=== PATIENT | male | born 1980 | race Caucasian/White ===

== ENCOUNTER 2019-01-26 06:00 | Emergency (ER) | payer OTHER, SELFPAY ==
[2019-01-26 06:06] VITALS: BP 133/70; PULSE 98; RESP 18; TEMP 37.2; O2SAT 96
--- NOTE | 2019-01-26 06:18 | ED.GENADUL_ITS ---
Discharge Plan Disposition Patient Disposition: HOME Condition: Stable Discharge Details Chief Complaint: Urinary Clinical Impression: Pain in right testicle Primary Care Provider: Rell Henry ED Provider: Jasper Rodriguez Home Meds and New Rx's Prescriptions: New levofloxacin 500 mg tablet 500 mg PO DAILY Qty: 9 RF: 0 Continued cyanocobalamin (vitamin B-12) [Vitamin B-12] 100 MCG tablet 100 mcg PO DAILY RF: 0 acetaminophen [Tylenol Extra Strength] 500 MG tablet 1,000 mg PO Q6H PRN RF: 0 fluoxetine [Prozac] 10 MG capsule 30 mg PO QAM RF: 0 buspirone 15 MG tablet 15 mg PO TID RF: 0 aripiprazole [Abilify] 5 MG tablet 5 mg PO DAILY RF: 0 hydroxyzine HCl 25 MG tablet 25 mg PO Q6H PRN Qty: 120 RF: 3 naproxen 500 MG tablet 500 mg PO Q12H PRN Qty: 60 RF: 3 Discharge Instructions Instructions: Testicle Pain (ED) Additional Instructions: we had no ultrasound techs available for an ultrasound and you declined to be transferred to [facility] at this time if your pain gets significantly worse or not improving go straight to [facility] or [facility] depending on which you are closer to. Medical Decision Making 38 yo male comes in with intermittent right sided testicle pain that acutely worsened this morning with swelling. Denies any trauma, no dysuria or discharge and no prior episodes of testicle pin in the past and denies any hx of std's. He has no abdominal pain or vomit. On exam has no tenderness or swelling to the left testicle with intact cremasteric reflex. Has right testicle tenderness throughout with mild swelling, no erythema or warmth, no cremasteric reflex on the right side. Will see if an u/s tech is avaiable to come in to perform u/s for possible torsion no tech has called in saying they were availabe, he still has some discomfort though it has improved. I recommended that I call [facility] for transfer for u/s but he declines as the pain has improved. He has the capacity to make his own decisions and understands risks of delaying torsion diagnosis including loss of the testicle. He states he is going to be in the [place] area today and if his pain gets worse he is going to go to [facility]. I am going to start him on tx for empiric epididymitis, denies any risk factors for std's. STrongly recommended going to tertiary care center from here. Differential Diagnosis Differential Diagnosis: torsion, epididymitis, orchitis HPI General Mode of arrival: ambulatory . Date/Time Provider Initiated Documentation: 01/26/19 06:01 . Limitations to Documentation: no limitations . Information obtained by: patient . History of Present Illness 38 year old M presents to the emergency department with the chief complaint of right sided testicle pain, described as moderate, Quality is described as sharp, and is localized to the right. Patient reports no radiation. Patient started experiencing this day(s) (2) and it has been constant. No relieving factors improve symptom(s), No exacerbating factors reported . Patient did receive the following treatments prior to arrival, none Related Data Home Medications Medication Instructions Recorded Confirmed acetaminophen [Tylenol Extra 1,000 mg PO Q6H PRN tab-cap 11/21/13 01/26/19 Strength] aripiprazole [Abilify] 5 mg PO DAILY tab-cap 11/21/13 01/26/19 buspirone 15 mg PO TID 11/21/13 01/26/19 cyanocobalamin (vitamin B-12) 100 mcg PO DAILY 11/21/13 01/26/19 [Vitamin B-12] fluoxetine [Prozac] 30 mg PO QAM 11/21/13 01/26/19 hydroxyzine HCl 25 mg PO Q6H PRN #120 tab-cap 11/28/13 01/26/19 naproxen 500 mg PO Q12H PRN #60 tab-cap 11/28/13 01/26/19 levofloxacin 500 mg PO DAILY #9 tab 01/26/19 Previous Rx's Medication Instructions Recorded levofloxacin 500 mg PO DAILY #9 tab 01/26/19 Allergies Allergy/AdvReac Type Severity Reaction Status Date / Time shellfish derived Allergy Mild Itching Unverified 01/26/19 06:11 General Stated Complaint: Urinary GIGI: 3 Review of Systems Review of Systems ROS Unobtainable: All systems reviewed & are unremarkable except as noted in HPI and below Constitutional Constitutional: Denies chills, Denies fever(s) and Denies weakness ENT Ears, Nose, Mouth, and Throat: Denies change in voice Cardiovascular Cardiovascular: Denies chest pain and Denies dyspnea Respiratory Respiratory: Denies cough and Denies dyspnea Gastrointestinal Gastrointestinal: Denies abdominal pain, Denies nausea and Denies vomiting Genitourinary Genitourinary: Denies dysuria Integumentary/Breasts Skin/Breast: Denies rash Neurologic Neurologic: Denies weakness PFSH Social History Smoking/Tobacco Use Status: Never Alcohol Intake: current Alcohol Intake frequency: holidays/special occasions only Drug use: Never Substance use type: does not use Do you feel safe at home: Yes Do you feel safe in your relationship?: Yes Additional Social history: denies SI/HI Exam Const General: no acute distress Orientation: alert HENMT Head: normal to inspection Ears: external ears normal General nose exam: external nose normal Mouth: moist mucous membranes Eyes General: appearance normal, both eyes and all related structures Neck Neck: normal visual inspection Resp Effort & Inspection: normal respiratory effort and able to speak in complete sentences Cardio Rate: regular rate Penis: normal penis Skin General skin exam: no rashes or lesions noted Neuro General: alert and oriented x3 Extrem General: normal to inspection Psych Mental Status: mental status grossly normal Course Vital Signs Vital signs: Vital Signs Temperature 37.2 C 01/26/19 06:06 Pulse 98 H 01/26/19 06:06 Respiratory Rate 18 01/26/19 06:06 Blood Pressure 133/70 01/26/19 06:06 Pulse Oximetry 96 01/26/19 06:06 Temperature 37.2 C 01/26/19 06:06 Temperature Source Skin 01/26/19 06:06 Pulse 98 H 01/26/19 06:06 Respiratory Rate 18 01/26/19 06:06 Respiratory Effort 01/26/19 06:13 Blood Pressure 133/70 01/26/19 06:06 Blood Pressure Position Sitting 01/26/19 06:06 Pulse Oximetry 96 01/26/19 06:06 Oxygen Delivery Method Room Air 01/26/19 06:06 Oxygen Flow Rate 0 01/26/19 06:06 Pain Level 3 01/26/19 06:14 Comment 01/26/19 06:06
[2019-01-26] MEDS: Ketorolac 30 MG/ML VIAL IM (06:39)
[2019-01-26 06:42] LABS: Bilirubin Negative (Negative); Blood Negative (Negative); Clarity Clear (Clear); Glucose Negative (Negative); Ketones Negative (Negative); Leukocyte Esterase Trace (Negative); Nitrite Negative (Negative); Specific Gravity 1.015 (1.005-1.025); Urobilinogen 0.2 EU/dL (Up TO 0.2)
[2019-01-26 06:50] LABS: Bacteria Rare HPF (Negative); C & S Indicated? Yes; Casts Negative LPF (Negative); Crystals Negative HPF (Negative); Epithelial Cells Rare HPF (Negative); Mucus Negative (Negative); RBC 0-2 (0-2)
[2019-01-26] MEDS: levoFLOXacin 500 MG TAB PO (07:03)
[2019-01-26 07:05] VITALS: BP 132/68; PULSE 62; RESP 18; TEMP 37.1; O2SAT 99
[2019-01-29 07:15] LABS: Chlamydia Result Negative; GC Result Negative
== END 2019-01-26 07:05 | disposition home or self-care (01) ==
PROVIDERS: Emergency Provider Emergency Medicine; PCP Family Medicine
DX: N50.811 Right testicular pain (principal)
CPT/HCPCS: 87491; 87591; 96372; 99284; 81003; 81015; 87086; J1885

== ENCOUNTER 2019-03-12 12:23 | Outpatient (REF) | payer OTHER, SELFPAY ==
[2019-03-12 14:08] LABS: HCT 45.2 % (40.0-50.0); Mean Corp. HGB Concentration 33.2 g/dL (32.0-36.0); Mean Corpuscular Hemoglobin 29.4 pg (27.0-33.0); Mean Corpuscular Volume 88.6 fL (80-95); Mean Platelet Volume 10.7 fL (8.0-11.0); Platelet Count 231 x1000/uL (130-400); RBC Distribution Width 13.7 % (11.8-14.1)
[2019-03-12 14:47] LABS: ALT 30 U/L (16-63); AST 19 U/L (15-37); Albumin 4.2 g/dL (3.4-5.0); Alkaline Phosphatase 46 U/L (46-116); Anion Gap 8.9 mmol/L (3-11); BUN 18 mg/dL (7-18); Bilirubin, Total 1.2 mg/dL (0.2-1.0); CO2 29.1 mmol/L (21.0-32.0); CREATININE 1.07 mg/dL (0.70-1.30); Calcium 9.1 mg/dL (8.5-10.1); Calculated LDL 99 mg/dL; Chloride 104 mmol/L (98-107); Cholesterol 163 mg/dL (<200); Glucose 88 mg/dL (74-106); HDL Cholesterol 59 mg/dL (40-60); Potassium 4.3 mmol/L (3.5-5.1); Sodium 142 mmol/L (136-145); Total Protein 7.2 g/dL (6.4-8.2); Triglyceride 29 mg/dL (<150)
[2019-03-12 15:06] LABS: Bilirubin Negative (Negative); Blood Negative (Negative); Clarity Clear (Clear); Glucose Negative (Negative); Ketones Negative (Negative); Leukocyte Esterase Negative (Negative); Nitrite Negative (Negative); Specific Gravity 1.025 (1.005-1.025); Urobilinogen 0.2 EU/dL (Up TO 0.2); pH 6.5 (5-8)
[2019-03-13 11:46] LABS: PSA, Screening 0.6 ng/mL (0.0-2.5)
[2019-03-16 13:57] LABS: Testosterone, Free 10.3 ng/dL (4.65-18.1); Testosterone, Total 687 ng/dL (240-950)
== END 2019-03-12 12:43 ==
LOC: NCHCN 12:23
PROVIDERS: PCP Family Medicine; Visit Provider Nurse Practitioner Family
DX: N52.9 Male erectile dysfunction, unspecified (principal); R35.0 Frequency of micturition; Z13.220 Encounter for screening for lipoid disorders; Z00.00 Encounter for general adult medical examination without abnormal findings; R53.83 Other fatigue; R68.89 Other general symptoms and signs; Z12.5 Encounter for screening for malignant neoplasm of prostate
CPT/HCPCS: 80053; 80061; 84153; 84402; 84403; 85027; 81003; 84443

== ENCOUNTER 2020-07-27 14:42 | Outpatient (REF) | payer OTHER, SELFPAY ==
[2020-07-27 13:28] LABS: Hemoglobin A1C 5.1 % (<5.7)
[2020-07-27 13:38] LABS: TSH (W/Ref FT4) 1.94 uIU/mL (0.36-3.74)
== END 2020-07-27 14:43 | disposition home or self-care (01) ==
LOC: NCHCN 14:42
PROVIDERS: PCP Family Medicine; Visit Provider Nurse Practitioner Family
DX: N52.9 Male erectile dysfunction, unspecified (principal)
CPT/HCPCS: 83036; 84443